=== PATIENT | female | born 1980 | race Two or more races ===

== ENCOUNTER → 2017-01-10 | Outpatient (CLI) | payer MEDICAID ==
[~2017-01-10] MED LIST: GLYB2.5T76 PO; PREN-96 PO
[2017-01-10 09:28] LABS: Basophils # (auto) 0 uL; Basophils % (auto) 0.4 % (0.0-2.0); Eosinophils # (auto) 0.1 uL; Eosinophils % (auto) 2.2 % (0.0-7.0); Hematocrit 38.9 % (36.0-46.0); Hemoglobin 12.8 g/dL (12.2-16.2); Lymphocytes # (auto) 1.2 uL; Lymphocytes % (auto) 19.2 % (10.0-50.0); Mean Corpuscular Hemoglobin 30.7 pg (28.0-32.0); Mean Corpuscular Hgb Conc. 32.8 g/dL (32.0-36.0); Mean Corpuscular Volume 93.5 fL (80.0-100.0); Mean Platelet Volume 9.4 fL (7.4-10.4); Monocytes # (auto) 0.3 uL; Monocytes % (auto) 5.2 % (0.0-12.0); Neutrophils # (auto) 4.4 uL; Platelet Count (auto) 196 10^3/uL (140-450); White Blood Cell 6.1 10^3/uL (4.4-10.8)
== END | disposition home or self-care (01) ==
LOC: LAB 07:40
PROVIDERS: ATTEND Specialist
DX: Z34.80 Encounter for supervision of other normal pregnancy, unspecified trimester (principal); Z11.3 Encounter for screening for infections with a predominantly sexual mode of transmission; Z31.430 Encounter of female for testing for genetic disease carrier status for procreative management
CPT/HCPCS: 36415; 82951; 83036; 85025; 86703; 86762; 86850; 86900; 86901; 87086; 87340; G0434

== ENCOUNTER 2017-04-09 14:00 | Observation (INO) | payer MEDICAID ==
[~2017-04-09] VITALS: Ht 154.9 cm; Wt 95.7 kg
[2017-04-09] MEDS ORDERED: LACTATED RINGER'S 1,000 ML IV ONE (16:00)
[2017-04-09] MEDS ORDERED: CEFTRIAXONE SODIUM 2 GM in D5W 5% 50 ML IV ONE (16:00)
[2017-04-09] MEDS ORDERED: ACETAMINOPHEN 325 MG TAB PO ONE (16:00)
[2017-04-09] MEDS ORDERED: SODIUM CHLORIDE 0.9% 1,000 ML IV ONE (16:15)
[2017-04-09 16:19] LABS: Basophils # (auto) 0 uL; Basophils % (auto) 0.3 % (0.0-2.0); Eosinophils # (auto) 0 uL; Eosinophils % (auto) 0.5 % (0.0-7.0); Hematocrit 34.8 % (36.0-46.0); Hemoglobin 12.1 g/dL (12.2-16.2); Lymphocytes # (auto) 0.2 uL; Lymphocytes % (auto) 5.4 % (10.0-50.0); Mean Corpuscular Hemoglobin 33.1 pg (28.0-32.0); Mean Corpuscular Hgb Conc. 34.9 g/dL (32.0-36.0); Mean Corpuscular Volume 94.8 fL (80.0-100.0); Mean Platelet Volume 9.3 fL (7.4-10.4); Monocytes # (auto) 0.3 uL; Monocytes % (auto) 6.6 % (0.0-12.0); Neutrophils # (auto) 3.5 uL; Neutrophils % (auto) 87.2 % (37.0-80.0); Platelet Count (auto) 149 10^3/uL (140-450); Red Cell Distribution Width 13.2 % (11.6-16.0)
== END 2017-04-09 21:30 | disposition home or self-care (01) | DRG 566 ==
LOC: LDRP 14:00
PROVIDERS: ADMIT Specialist; ATTEND Specialist
DX: O26.892 Other specified pregnancy related conditions, second trimester (principal); O24.419 Gestational diabetes mellitus in pregnancy, unspecified control; H53.8 Other visual disturbances; R50.9 Fever, unspecified; R51 Headache; Z3A.32 32 weeks gestation of pregnancy
CPT/HCPCS: 36415; 59025; 81002; 82962; 85025; 96365; G0378; J0696; J7030; 96361; 96366; J7060

== ENCOUNTER 2017-05-02 19:57 | Observation (INO) | payer MEDICAID | END 2017-05-02 21:35 | disposition home or self-care (01) | DRG 566 | LOC: LDRP 19:57 | PROVIDERS: ADMIT Specialist; ATTEND Specialist | DX: O24.419 Gestational diabetes mellitus in pregnancy, unspecified control (principal); Z3A.28 28 weeks gestation of pregnancy | CPT/HCPCS: 59025; 76818; 81002; 82948; 82962; G0378 ==

== ENCOUNTER 2017-05-07 21:15 | Observation (INO) | payer MEDICAID | END 2017-05-07 22:30 | disposition home or self-care (01) | DRG 955 | LOC: LDRP 21:15 | PROVIDERS: ADMIT Specialist; ATTEND Specialist | DX: O26.899 Other specified pregnancy related conditions, unspecified trimester (principal); R52 Pain, unspecified; Z3A.00 Weeks of gestation of pregnancy not specified | CPT/HCPCS: 59025; 76818; 81002; G0378 ==

== ENCOUNTER 2017-05-10 20:17 | Observation (INO) | payer MEDICAID | END 2017-05-10 21:30 | disposition home or self-care (01) | DRG 566 | LOC: LDRP 20:17 | PROVIDERS: ADMIT Obstetrics & Gynecology; ATTEND Obstetrics & Gynecology | DX: O24.419 Gestational diabetes mellitus in pregnancy, unspecified control (principal); O09.523 Supervision of elderly multigravida, third trimester; Z3A.00 Weeks of gestation of pregnancy not specified | CPT/HCPCS: 59025; 76818; 81002; G0378 ==

== ENCOUNTER 2017-05-13 20:05 | Observation (INO) | payer MEDICAID | END 2017-05-13 21:55 | disposition home or self-care (01) | DRG 566 | LOC: LDRP 20:05 | PROVIDERS: ADMIT Specialist; ATTEND Specialist | DX: O24.419 Gestational diabetes mellitus in pregnancy, unspecified control (principal); Z3A.29 29 weeks gestation of pregnancy | CPT/HCPCS: 59025; 76818; 81002; G0378 ==

== ENCOUNTER → 2017-05-15 | Outpatient (CLI) | payer MEDICAID | END | disposition home or self-care (01) | LOC: LAB 09:35 | PROVIDERS: ATTEND Specialist | DX: Z34.80 Encounter for supervision of other normal pregnancy, unspecified trimester (principal); O99.810 Abnormal glucose complicating pregnancy | CPT/HCPCS: 36415; 83036 ==

== ENCOUNTER 2017-05-16 08:20 | Observation (INO) | payer MEDICAID | END 2017-05-16 09:30 | disposition home or self-care (01) | DRG 566 | LOC: LDRP 08:20 | PROVIDERS: ADMIT Obstetrics & Gynecology; ATTEND Obstetrics & Gynecology | DX: O24.419 Gestational diabetes mellitus in pregnancy, unspecified control (principal); Z3A.30 30 weeks gestation of pregnancy | CPT/HCPCS: 59025; 76818; 81002; G0378 ==

== ENCOUNTER 2017-05-27 21:25 | Observation (INO) | payer MEDICAID | END 2017-05-27 22:25 | disposition home or self-care (01) | DRG 566 | LOC: LDRP 21:25 | PROVIDERS: ADMIT Obstetrics & Gynecology; ATTEND Obstetrics & Gynecology | DX: O26.893 Other specified pregnancy related conditions, third trimester (principal); Z3A.31 31 weeks gestation of pregnancy | CPT/HCPCS: 59025; 76818; 81002; G0378 ==

== ENCOUNTER 2017-05-30 21:56 | Observation (INO) | payer MEDICAID | END 2017-05-30 23:12 | disposition home or self-care (01) | DRG 566 | LOC: LDRP 21:56 | PROVIDERS: ADMIT Obstetrics & Gynecology; ATTEND Obstetrics & Gynecology | DX: O24.419 Gestational diabetes mellitus in pregnancy, unspecified control (principal); Z3A.32 32 weeks gestation of pregnancy | CPT/HCPCS: 59025; 76818; 81002; 82948; 82962; G0378 ==

== ENCOUNTER 2017-06-03 21:14 | Observation (INO) | payer MEDICAID | END 2017-06-03 22:58 | disposition home or self-care (01) | DRG 566 | LOC: LDRP 21:14 | PROVIDERS: ADMIT Specialist; ATTEND Specialist | DX: O24.419 Gestational diabetes mellitus in pregnancy, unspecified control (principal); Z3A.32 32 weeks gestation of pregnancy | CPT/HCPCS: 59025; 76818; 81002; 82962; G0378 ==

== ENCOUNTER 2017-06-06 21:13 | Observation (INO) | payer MEDICAID | END 2017-06-06 22:58 | disposition home or self-care (01) | DRG 566 | LOC: LDRP 21:13 | PROVIDERS: ADMIT Specialist; ATTEND Specialist | DX: O24.419 Gestational diabetes mellitus in pregnancy, unspecified control (principal); Z3A.33 33 weeks gestation of pregnancy | CPT/HCPCS: 59025; 76818; 81002; 82962; G0378 ==

== ENCOUNTER 2017-06-10 21:59 | Observation (INO) | payer MEDICAID | END 2017-06-10 23:50 | disposition home or self-care (01) | DRG 566 | LOC: LDRP 21:59 | PROVIDERS: ADMIT Obstetrics & Gynecology; ATTEND Obstetrics & Gynecology | DX: O24.419 Gestational diabetes mellitus in pregnancy, unspecified control (principal); Z3A.33 33 weeks gestation of pregnancy | CPT/HCPCS: 59025; 76818; 81002; 82948; 82962; G0378 ==

== ENCOUNTER 2017-06-13 21:32 | Observation (INO) | payer MEDICAID | END 2017-06-13 22:46 | disposition home or self-care (01) | DRG 566 | LOC: LDRP 21:32 | PROVIDERS: ADMIT Obstetrics & Gynecology; ATTEND Obstetrics & Gynecology | DX: O24.419 Gestational diabetes mellitus in pregnancy, unspecified control (principal); Z3A.34 34 weeks gestation of pregnancy | CPT/HCPCS: 59025; 76818; 81002; 82948; 82962; G0378 ==

== ENCOUNTER 2017-06-17 21:05 | Observation (INO) | payer MEDICAID | END 2017-06-17 22:39 | disposition home or self-care (01) | DRG 566 | LOC: LDRP 21:05 | PROVIDERS: ADMIT Specialist; ATTEND Specialist | DX: O24.419 Gestational diabetes mellitus in pregnancy, unspecified control (principal); O32.1XX0 Maternal care for breech presentation, not applicable or unspecified; Z3A.34 34 weeks gestation of pregnancy | CPT/HCPCS: 59025; 76818; 81002; 82962; G0378 ==

== ENCOUNTER 2017-06-21 21:04 | Observation (INO) | payer MEDICAID | END 2017-06-21 22:39 | disposition home or self-care (01) | DRG 566 | LOC: LDRP 21:04 | PROVIDERS: ADMIT Specialist; ATTEND Specialist | DX: O24.419 Gestational diabetes mellitus in pregnancy, unspecified control (principal); Z3A.35 35 weeks gestation of pregnancy | CPT/HCPCS: 59025; 76818; 81002; 82948; 82962; G0378 ==

== ENCOUNTER 2017-06-24 20:49 | Observation (INO) | payer MEDICAID | END 2017-06-24 22:30 | disposition home or self-care (01) | DRG 566 | LOC: LDRP 20:49 | PROVIDERS: ADMIT Specialist; ATTEND Specialist | DX: O24.419 Gestational diabetes mellitus in pregnancy, unspecified control (principal); Z3A.35 35 weeks gestation of pregnancy | CPT/HCPCS: 59025; 76818; 81002; 82948; 82962; G0378 ==

== ENCOUNTER → 2017-06-24 | Outpatient (CLI) | payer MEDICAID ==
[2017-06-24 11:44] LABS: Basophils # (auto) 0 uL; Basophils % (auto) 0.2 % (0.0-2.0); CONDITION Y; Eosinophils # (auto) 0.2 uL; Hematocrit 35.2 % (36.0-46.0); Hemoglobin 12.3 g/dL (12.2-16.2); Lymphocytes % (auto) 13.6 % (10.0-50.0); Mean Corpuscular Hemoglobin 33.2 pg (28.0-32.0); Mean Corpuscular Hgb Conc. 34.9 g/dL (32.0-36.0); Mean Corpuscular Volume 95.2 fL (80.0-100.0); Mean Platelet Volume 9.3 fL (7.4-10.4); Monocytes # (auto) 0.3 uL; Monocytes % (auto) 4.5 % (0.0-12.0); Neutrophils # (auto) 6.1 uL; Neutrophils % (auto) 79.7 % (37.0-80.0); Platelet Count (auto) 167 10^3/uL (140-450); Red Cell Distribution Width 13.3 % (11.6-16.0); White Blood Cell 7.7 10^3/uL (4.4-10.8)
== END | disposition home or self-care (01) ==
LOC: LAB 11:20
PROVIDERS: ATTEND Specialist
DX: Z34.80 Encounter for supervision of other normal pregnancy, unspecified trimester (principal); Z11.3 Encounter for screening for infections with a predominantly sexual mode of transmission; N76.0 Acute vaginitis
CPT/HCPCS: 36415; 85025; 87081

== ENCOUNTER 2017-06-27 21:56 | Observation (INO) | payer MEDICAID | END 2017-06-27 23:13 | disposition home or self-care (01) | DRG 566 | LOC: LDRP 21:56 | PROVIDERS: ADMIT Obstetrics & Gynecology; ATTEND Obstetrics & Gynecology | DX: O24.419 Gestational diabetes mellitus in pregnancy, unspecified control (principal); Z3A.36 36 weeks gestation of pregnancy | CPT/HCPCS: 59025; 76818; 81002; 82962; G0378 ==

== ENCOUNTER 2017-06-30 21:24 | Observation (INO) | payer MEDICAID | END 2017-06-30 23:36 | disposition home or self-care (01) | DRG 566 | LOC: LDRP 21:24 | PROVIDERS: ADMIT Specialist; ATTEND Specialist | DX: O24.419 Gestational diabetes mellitus in pregnancy, unspecified control (principal); Z3A.36 36 weeks gestation of pregnancy | CPT/HCPCS: 59025; 76818; 81002; G0378 ==

== ENCOUNTER 2017-07-07 19:51 | Observation (INO) | payer MEDICAID | END 2017-07-07 21:47 | disposition home or self-care (01) | DRG 566 | LOC: LDRP 19:51 | PROVIDERS: ADMIT Specialist; ATTEND Specialist | DX: O24.419 Gestational diabetes mellitus in pregnancy, unspecified control (principal); Z3A.38 38 weeks gestation of pregnancy | CPT/HCPCS: 59025; 76818; 81002; 82962; G0378 ==

== ENCOUNTER 2017-07-10 19:36 | Observation (INO) | payer MEDICAID | END 2017-07-10 21:01 | disposition home or self-care (01) | DRG 566 | LOC: LDRP 19:36 | PROVIDERS: ADMIT Obstetrics & Gynecology; ATTEND Obstetrics & Gynecology | DX: O24.419 Gestational diabetes mellitus in pregnancy, unspecified control (principal); Z3A.38 38 weeks gestation of pregnancy | CPT/HCPCS: 59025; 76818; 81002; 82948; 82962; G0378 ==

== ENCOUNTER 2017-07-13 18:05 | Observation (INO) | payer MEDICAID ==
[~2017-07-13] VITALS: Ht 1 cm; Wt 0.5 kg
[2017-07-13] MEDS ORDERED: LACTATED RINGER'S 1,000 ML IV ONE (19:15)
== END 2017-07-13 21:33 | disposition home or self-care (01) | DRG 566 ==
LOC: LDRP 18:05
PROVIDERS: ADMIT Obstetrics & Gynecology; ATTEND Obstetrics & Gynecology
DX: O24.419 Gestational diabetes mellitus in pregnancy, unspecified control (principal); Z3A.38 38 weeks gestation of pregnancy
CPT/HCPCS: 59025; 76815; 76818; 81002; 82962; G0378

== ENCOUNTER 2017-07-16 19:50 | Observation (INO) | payer MEDICAID | END 2017-07-16 20:55 | disposition home or self-care (01) | DRG 566 | LOC: LDRP 19:50 | PROVIDERS: ADMIT Obstetrics & Gynecology; ATTEND Obstetrics & Gynecology | DX: O24.419 Gestational diabetes mellitus in pregnancy, unspecified control (principal); Z3A.39 39 weeks gestation of pregnancy | CPT/HCPCS: 59025; 76818; 81002; 82948; 82962; G0378 ==

== ENCOUNTER → 2017-09-03 | Outpatient (CLI) | payer MEDICAID ==
[~2017-09-03] MED LIST changes: -GLYB2.5T76 PO; +GLYB2.5T8 PO
== END | disposition home or self-care (01) ==
LOC: LAB 08:56
PROVIDERS: ATTEND Specialist
DX: O09.529 Supervision of elderly multigravida, unspecified trimester (principal); O99.810 Abnormal glucose complicating pregnancy; Z3A.00 Weeks of gestation of pregnancy not specified
CPT/HCPCS: 36415; 82951